=== PATIENT | male | born 1945 | race Caucasian/White ===

== ENCOUNTER 2017-04-28 11:42 | Day surgery (SDC) | payer MEDICARE, OTHER ==
[~2017-04-28] VITALS: Ht 175.3 cm; Wt 77.9 kg
[~2017-04-28 11:42] MED LIST: ALLO100 PO; ASPI325 PO; ASPI81EC PO; Acidophilus La100 GM PO; CLOP75 PO; DIPH50 PO; DOXA4 PO; GABA400 PO; HYDACE5325 PO; INDO25 PO; LISI20 PO; LIVALO2 MG PO; LORA10ER PO; NEBI5 PO; NIFE30ER PO; NITR.4SL SL; OMEP20ER PO; OXYACE5T PO; PROM25 PO; Pravachol40 MG PO; TAMS.4ER PO; TRAZ100 PO
== END 2017-04-28 13:23 | disposition home or self-care (01) ==
LOC: ORSCSDS 11:42
DX: Z12.11 Encounter for screening for malignant neoplasm of colon (principal); D12.2 Benign neoplasm of ascending colon; K63.5 Polyp of colon; K63.89 Other specified diseases of intestine; K57.30 Diverticulosis of large intestine without perforation or abscess without bleeding; K64.1 Second degree hemorrhoids; I10 Essential (primary) hypertension; Z79.899 Other long term (current) drug therapy; Z79.82 Long term (current) use of aspirin; F17.210 Nicotine dependence, cigarettes, uncomplicated
CPT/HCPCS: 88305; J7120